=== PATIENT | male | born 1965 | race Caucasian/White ===

== ENCOUNTER 2023-05-30 14:26 | Inpatient (IN) | payer OTHER ==
[2023-05-30] MEDS ORDERED: Dextrose 50% Abboject 50 ML SYRINGE SLOW IVP PRN (20:14)
[2023-05-30] MEDS ORDERED: Ondansetron ODT 4 MG TAB PO PRN (20:14)
[2023-05-30] MEDS ORDERED: Dextrose 5% in Water 1,000 ML IV PRN (20:14)
[2023-05-30] MEDS ORDERED: Glucagon 1 MG/ML KIT IM PRN (20:14)
[2023-05-30] MEDS ORDERED: Acetaminophen 325 MG TAB PO PRN (20:14)
[2023-05-30 20:38] LABS: #Basophils 0.1 10x3/uL (0.0-0.2); #Eosinphils 0.2 10x3/uL (0.0-0.5); #Monocytes 0.5 10x3/uL (0.0-1.1); #Neutrophils 4.8 10x3/uL (1.5-8.4); %Basophils 0.7 % (0.0-2.0); %Eosinophils 1.8 % (0.0-6.0); %Lymphocytes 33.7 % (18.0-47.0); %Monocytes 5.4 % (0.0-10.0); %Neutrophils 58.2 % (40.0-75.0); Hematocrit 39.9 % (38.8-50.0); Hemoglobin 13.4 g/dL (13.5-17.5); Mean Corpuscular HGB CONC 33.6 g/dL (32.0-36.0); Mean Corpuscular Hemoglobin 29.3 pg (27.0-33.0); Mean Corpuscular Volume 87.1 fl (81.2-95.1); Mean Platelet Volume 9.2 fl (7.4-10.4); Platelet Count 258 10x3/uL (150-450); RBC Distribution Width 14.7 % (11.5-14.5); Red Blood Cell (RBC) Count 4.58 10x6/uL (4.32-5.72); White Blood Cell (WBC) Count 8.3 10x3/uL (3.5-10.5)
[2023-05-30 20:52] LABS: Anion Gap 17 mmol/L (10-20); BUN (Urea Nitrogen) 12 mg/dL (8.4-25.7); Calc. Creatinine Clearance 0 mL/min (70-130); Calcium 9.4 mg/dL (7.8-10.44); Carbon Dioxide 20 mmol/L (22-29); Chloride 106 mmol/L (98-107); Estimated GFR 113; Glucose 95 mg/dL (70-105); Magnesium 1.9 mg/dL (1.6-2.6); Sodium 139 mmol/L (136-145)
[2023-05-30 21:22] VITALS: BMI 26.6
[2023-05-30] MEDS: OLANZapine 5 MG TAB PO SCH (22:06)
[2023-05-31] MEDS: Tamsulosin HCl 0.4 MG CAP PO SCH (09:47)
[2023-05-31] MEDS: OLANZapine 5 MG TAB PO SCH (20:29)
[2023-06-01] MEDS: Tamsulosin HCl 0.4 MG CAP PO SCH (08:31)
[2023-06-01] MEDS: OLANZapine 5 MG TAB PO SCH (21:43)
[2023-06-02 04:41] LABS: Hematocrit 38.5 % (38.8-50.0); Hemoglobin 12.9 g/dL (13.5-17.5); Mean Corpuscular HGB CONC 33.5 g/dL (32.0-36.0); Mean Corpuscular Hemoglobin 28.9 pg (27.0-33.0); Mean Corpuscular Volume 86.3 fl (81.2-95.1); Mean Platelet Volume 9.1 fl (7.4-10.4); Platelet Count 272 10x3/uL (150-450); RBC Distribution Width 14.6 % (11.5-14.5); Red Blood Cell (RBC) Count 4.46 10x6/uL (4.32-5.72); White Blood Cell (WBC) Count 7.3 10x3/uL (3.5-10.5)
[2023-06-02 04:55] LABS: Anion Gap 14 mmol/L (10-20); BUN (Urea Nitrogen) 15 mg/dL (8.4-25.7); Calc. Creatinine Clearance 138 mL/min (70-130); Calcium 9.4 mg/dL (7.8-10.44); Carbon Dioxide 21 mmol/L (22-29); Chloride 107 mmol/L (98-107); Estimated GFR 112; Glucose 110 mg/dL (70-105); Potassium 3.8 mmol/L (3.5-5.1); Sodium 138 mmol/L (136-145)
[2023-06-02] MEDS: Tamsulosin HCl 0.4 MG CAP PO SCH (09:19)
[2023-06-02] MEDS: OLANZapine 5 MG TAB PO SCH (21:57)
[2023-06-03] MEDS: Tamsulosin HCl 0.4 MG CAP PO SCH (09:06)
[2023-06-03] MEDS: OLANZapine 5 MG TAB PO SCH (21:30)
[2023-06-04] MEDS: Tamsulosin HCl 0.4 MG CAP PO SCH (10:12)
[2023-06-04] MEDS: OLANZapine 5 MG TAB PO SCH (20:17)
[2023-06-04] MEDS: HumaLOG 300 UNITS/3 ML VIAL SC PRN (21:54)
[2023-06-05] MEDS: Tamsulosin HCl 0.4 MG CAP PO SCH (09:06)
[2023-06-05] MEDS: OLANZapine 5 MG TAB PO SCH (21:21)
[2023-06-06 04:18] LABS: #Basophils 0.1 10x3/uL (0.0-0.2); #Monocytes 0.8 10x3/uL (0.0-1.1); #Neutrophils 12.2 10x3/uL (1.5-8.4); %Basophils 0.4 % (0.0-2.0); %Eosinophils 0.1 % (0.0-6.0); %Lymphocytes 9.7 % (18.0-47.0); %Monocytes 5.5 % (0.0-10.0); %Neutrophils 83.9 % (40.0-75.0); Hematocrit 39.6 % (38.8-50.0); Hemoglobin 13.5 g/dL (13.5-17.5); Mean Corpuscular HGB CONC 34.1 g/dL (32.0-36.0); Mean Corpuscular Hemoglobin 29.4 pg (27.0-33.0); Mean Corpuscular Volume 86.3 fl (81.2-95.1); Mean Platelet Volume 8.9 fl (7.4-10.4); Platelet Count 272 10x3/uL (150-450); RBC Distribution Width 14.8 % (11.5-14.5); Red Blood Cell (RBC) Count 4.59 10x6/uL (4.32-5.72); White Blood Cell (WBC) Count 14.6 10x3/uL (3.5-10.5)
[2023-06-06 04:39] LABS: ALT (SGPT) 13 U/L (8-55); AST (SGOT) 16 U/L (5-34); Albumin 4.5 g/dL (3.5-5.0); Alkaline Phosphatase 75 U/L (40-110); Anion Gap 17 mmol/L (10-20); BUN (Urea Nitrogen) 25 mg/dL (8.4-25.7); Bilirubin, Total 0.4 mg/dL (0.2-1.2); Calc. Creatinine Clearance 79 mL/min (70-130); Calcium 9.9 mg/dL (7.8-10.44); Carbon Dioxide 21 mmol/L (22-29); Chloride 104 mmol/L (98-107); Estimated GFR 78; Globulin 3.3 g/dL (2.4-3.5); Glucose 182 mg/dL (70-105); Potassium 4.4 mmol/L (3.5-5.1); Protein, Total 7.8 g/dL (6.0-8.3); Sodium 138 mmol/L (136-145)
[2023-06-06 07:36] LABS: Amphetamine Not Detected (NotDetected); Barbiturates Screen Not Detected (NotDetected); Benzodiazepine Screen Not Detected (NotDetected); Cocaine Metabolite Screen Not Detected (NotDetected); Methadone Not Detected (NotDetected); Methamphetamine Not Detected (NotDetected); Opiate Screen Not Detected (NotDetected); Oxycodone Screen Not Detected (NotDetected); Phencyclidine (PCP) Not Detected (NotDetected); THC/Cannabinoid Screen Not Detected (NotDetected); Tricyclic Screen Not Detected (NotDetected)
[2023-06-06] MEDS: Tamsulosin HCl 0.4 MG CAP PO SCH (09:37)
[2023-06-06] MEDS: OLANZapine 5 MG TAB PO SCH (21:30)
[2023-06-06] MEDS: HumaLOG 300 UNITS/3 ML VIAL SC PRN (21:41)
[2023-06-07] MEDS: Tamsulosin HCl 0.4 MG CAP PO SCH (11:07)
[2023-06-07] MEDS: OLANZapine 5 MG TAB PO SCH (23:11)
[2023-06-08 05:07] LABS: #Basophils 0.1 10x3/uL (0.0-0.2); #Eosinphils 0.1 10x3/uL (0.0-0.5); #Monocytes 0.5 10x3/uL (0.0-1.1); #Neutrophils 3.5 10x3/uL (1.5-8.4); %Basophils 0.8 % (0.0-2.0); %Eosinophils 1.6 % (0.0-6.0); %Lymphocytes 40.4 % (18.0-47.0); %Monocytes 6.9 % (0.0-10.0); Hematocrit 39.4 % (38.8-50.0); Hemoglobin 13.1 g/dL (13.5-17.5); Mean Corpuscular HGB CONC 33.2 g/dL (32.0-36.0); Mean Corpuscular Hemoglobin 28.9 pg (27.0-33.0); Mean Platelet Volume 9.3 fl (7.4-10.4); Platelet Count 259 10x3/uL (150-450); RBC Distribution Width 14.6 % (11.5-14.5); Red Blood Cell (RBC) Count 4.53 10x6/uL (4.32-5.72); White Blood Cell (WBC) Count 7.1 10x3/uL (3.5-10.5)
[2023-06-08] MEDS ORDERED: Furosemide 20 MG TAB PO SCH (10:00)
[2023-06-08] MEDS: Tamsulosin HCl 0.4 MG CAP PO SCH (10:39)
[2023-06-08] MEDS ORDERED: Iopamidol 300 61% 100 ML VIAL FS ONE (10:41)
[2023-06-08] MEDS: OLANZapine 5 MG TAB PO SCH (22:30)
[2023-06-09] MEDS: Tamsulosin HCl 0.4 MG CAP PO SCH (10:39)
[2023-06-09 12:37] VITALS: BP 115/72; TEMP 98.3
== END 2023-06-09 13:07 | disposition home or self-care (01) | DRG 951 ==
LOC: CSHERS 14:26 → CSHTELE 21:00 → OBSVTOIN 06-01 08:07
PROVIDERS: ADMIT Family Medicine; ATTEND Internal Medicine
DX: Z74.2 Need for assistance at home and no other household member able to render care (principal); V89.2XXA Person injured in unspecified motor-vehicle accident, traffic, initial encounter; E11.9 Type 2 diabetes mellitus without complications; Z93.3 Colostomy status; Z90.49 Acquired absence of other specified parts of digestive tract; Z88.0 Allergy status to penicillin; F17.210 Nicotine dependence, cigarettes, uncomplicated; D72.829 Elevated white blood cell count, unspecified; S31.109A Unspecified open wound of abdominal wall, unspecified quadrant without penetration into peritoneal cavity, initial encounter; Z87.820 Personal history of traumatic brain injury; Z68.22 Body mass index [BMI] 22.0-22.9, adult; R62.7 Adult failure to thrive
CPT/HCPCS: 36415; 36416; 74160; 80048; 80053; 80306; 83735; 84443; 85025; 85027; 87070; 87077; 87186; 87205; 96372; 99284; G0378; J1650; J1815; Q9967

== ENCOUNTER 2023-06-16 10:13 | Outpatient (CLI) | payer OTHER | END 2023-06-16 10:14 | disposition home or self-care (01) | LOC: CSHRAD 10:13 | PROVIDERS: ATTEND Surgery | DX: Z93.3 Colostomy status (principal) | CPT/HCPCS: 74280 ==

== ENCOUNTER 2023-08-13 08:58 | Outpatient (CLI) | payer OTHER | END 2023-08-13 08:59 | disposition home or self-care (01) | LOC: CSHRAD 08:58 | PROVIDERS: ATTEND Surgery | DX: Z93.2 Ileostomy status (principal) | CPT/HCPCS: 74280 ==